=== PATIENT | male | born 1980 | race Caucasian/White ===

== ENCOUNTER 2017-11-05 15:10 | Emergency (ER) | payer OTHER ==
[~2017-11-05] VITALS: Ht 180.3 cm; Wt 99.8 kg
[2017-11-05 15:49] LABS: ABSOLUTE BASOPHIL COUNT 0 /CUMM (0.0-0.2); ABSOLUTE EOSINOPHIL COUNT 0.1 /CUMM (0.0-0.7); ABSOLUTE GRANULOCYTE CT 5.1 /CUMM (1.4-6.5); ABSOLUTE LYMPH COUNT 1.7 /CUMM (1.2-3.4); ABSOLUTE MONOCYTE COUNT 0.8 /CUMM (0.10-0.60); BASOPHIL % 0.4 % (0.0-2.0); EOSINOPHIL % 1.2 % (0-5); GRANULOCYTE % 66.9 % (42.2-75.2); HEMATOCRIT 43.3 % (42-52); MEAN CORPUSCULAR HGB CONC 33.7 G/DL (33.0-37.0); MEAN CORPUSCULAR VOLUME 86.1 FL (80.0-94.0); MEAN PLATELET VOLUME 8.9 FL (7.4-10.4); PLATELET COUNT 217 /CUMM (130-400); RBC DISTRIBUTION WIDTH 13.6 % (11.5-14.5); RED BLOOD CELL CT 5.03 /CUMM (4.70-6.10); WHITE BLOOD CELL COUNT 7.7 /CUMM (4.8-10.8)
--- NOTE | 2017-11-05 16:17 | ED CARDIAC/CP/PALPITATIONS ---
History of Present Illness General Chief Complaint: Chest Pain Stated Complaint: CP Source: patient, old records Exam Limitations: no limitations Vital Signs & Intake/Output Vital Signs & Intake/Output Vital Signs Date Time Temp Pulse Resp B/P B/P Pulse O2 O2 Flow FiO2 Mean Ox Delivery Rate 11/05 1847 98.8 71 18 132/81 99 Room Air 11/05 1629 Room Air 11/05 1513 98.2 84 18 158/93 99 Room Air Allergies Coded Allergies: No Known Allergies (11/05/17) Triage Note: PT TO ED FOR "WAVEY CHEST PAIN" THAT BEGAN "5 HOURS AGO" REPORTS HE WAS JUST HANGING OUT AT HOME WHEN HE BEGAN TO HAVE CHEST PAIN, DENIES ASSOCIATED SOB, CAGLE, N/V, REPORTS HE WAS COUGHING THIS AM P/T CP STARTING Triage Nurses Notes Reviewed? yes Onset: Abrupt Duration: hour(s): (6), constant Timing: recent history Quality/Severity: moderate, aching Location: central Radiation: no radiation Activities at Onset: none Nitro Today/Relief: no nitro taken today Aspirin Today: 325 mg x 1, provided by ED Associated Symptoms: DENIES HPI: 36-year-old male nonsmoker with no medical history presents to ER for evaluation of waxing and waning left-sided chest wall pain rated I came on around 10:00 this morning while at rest. No history of similar symptoms. The patient has a history of reflux R states this feels different. It is not associated with shortness of breath nausea vomiting diarrhea. No family history of some cardiac disease. No dizziness light and has palpitations. He does not smoke. No alcohol or drug use. He is not taken anything for symptoms. (Jaden Jackman) Past History Travel History Traveled to [place] past 21 day No Medical History Any Pertinent Medical History? none Neurological: NONE EENT: NONE Cardiovascular: NONE Respiratory: NONE Gastrointestinal: NONE Hepatic: NONE Renal: NONE Musculoskeletal: NONE Psychiatric: NONE Endocrine: NONE Blood Disorders: NONE Cancer(s): NONE Surgical History Surgical History: none Psychosocial History What is your primary language Sami Tobacco Use: Never used ETOH Use: occasional use Illicit Drug Use: denies illicit drug use Family History Hx Contributory? No (Jaden Jackman) Review of Systems Review of Systems Constitutional: Reports: see HPI. Comments Review of systems: See HPI, All other systems negative. Constitutional, no chills no fever, no malaise HEENT: no sore throat no congestion, no ear pain Cardiovascular: No chest pain , no palpitation Skin: no rashes, no change in skin Respiratory: No dyspnea no cough no sputum GI: No nausea no vomiting, no diarrhea : No dysuria No hematuria, no frequency Muscle skeletal: No joint pain, no back pain Neurologic: , no headache Heme/endocrine: No bruising Immunology: No lymphadenopathy (Anne BAZZI,Jaden) Physical Exam Physical Exam General Appearance: well developed/nourished, alert Cardiovascular: regular rate/rhythm Comments: Well-developed well-nourished person in no acute distress HEENT: Normal EENT exam; PERRL, EOMI. HEAD is atraumatic. moist mucous membranes. Neck: Supple, normal range of motion Back: Nontender, Full range of motion Cardiovascular: Regular rate and rhythms no murmurs Respiratory: Chest nontender.There were no bony deformities, no asymmetry. No respiratory distress. Patient speaking in full complete sentences. Breath sounds clear to auscultation bilaterally: NO W/R/R Abdomen: Soft, nontender nondistended, no appreciable organomegaly. Normal bowel sounds. No rebound/guarding, Extremity: No edema, full range of motion of extremities Neuro: Alert oriented x3, motor sensory normal, There were no obvious focal neurologic abnormalities. Skin: No appreciable rash on exposed skin, skin is warm and dry. Psych: Mood and affect is normal, memory and judgment is normal. Core Measures ACS in differential dx? Yes CVA/TIA Diagnosis No Sepsis Present: No Sepsis Focused Exam Completed? No (Anne BAZZI,Jaden) Progress Differential Diagnosis: AMI, aortic dissection, atrial fibrillation, CHF/pulm edema, costochondritis, musculoskeletal pain, myocarditis, pericarditis, pneumonia, pneumothorax, pulmonary embolism, unstable angina Diagnostic Imaging: Viewed by Me: Radiology Read. Discussed w/RAD: Radiology Read. Radiology Impression: PATIENT: RUPAL BARDALES PRESENT AGE: 36 PATIENT ACCOUNT NO: [id number] : 81 LOCATION: [facility] ORDERING PHYSICIAN: Jaden BAZZI SERVICE DATE: 11/05/17 EXAM TYPE: RAD - XRY- PORTABLE CHEST XRAY EXAMINATION: XR PORTABLE CHEST CLINICAL INFORMATION: Chest pain COMPARISON: None TECHNIQUE: Portable frontal view of the chest was obtained. FINDINGS: Heart size is top normal. The lungs are clear without consolidation or effusion. No pneumothorax. The visualized osseous structures appear intact. IMPRESSION: No acute cardiopulmonary process. DICTATED BY: Agnieszka Stanley MD DATE/TIME DICTATED:11/05/171754 PHYSICIAN:WENDY DATE/ TIME TRANSCRIBED:11/05/171754 CONFIDENTIAL, DO NOT COPY WITHOUT APPROPRIATE AUTHORIZATION. <Electronically signed in Other Vendor System> SIGNED BY: Agnieszka Stanley MD 11/05/171758 Initial ED EKG: normal intervals, normal p-waves, normal QRS complex, normal sinus rhythm Repeat EKG: unchanged Rhythm Strip: normal sinus rhythm (Anne BAZZI,Jaden) Plan of Care: Orders Procedure Date/time Status TROPONIN LEVEL 11/05 1830 Complete EKG 11/05 1830 Active Add-on Test (ER Only) 11/05 1626 Active Telemetry/Print And Pattern Designer 11/05 1626 Active TROPONIN LEVEL 11/05 1527 Complete D-DIMER 11/05 1527 Complete COMPREHENSIVE METABOLIC PANEL 11/05 1527 Complete CBC WITHOUT DIFFERENTIAL 11/05 1527 Complete EKG 11/05 1511 Active Laboratory Tests 11/05/17 1851: Troponin I < 0.01 11/05/17 1533: Anion Gap 12, Estimated GFR > 60, BUN/Creatinine Ratio 13.3, Glucose 84, Calcium 9.5, Total Bilirubin 0.4, AST 25, ALT 46, Alkaline Phosphatase 53, Troponin I < 0.01, Total Protein 7.3, Albumin 4.3, Globulin 3.0, Albumin/Globulin Ratio 1.4, D-Dimer High Sensitivty < 200, CBC w Diff NO MAN DIFF REQ, RBC 5.03, MCV 86.1, MCH 29.0, MCHC 33.7, RDW 13.6, MPV 8.9, Gran % 66.9, Lymphocytes % 21.7, Monocytes % 9.8 H, Eosinophils % 1.2, Basophils % 0.4, Absolute Granulocytes 5.1, Absolute Lymphocytes 1.7, Absolute Monocytes 0.8 H, Absolute Eosinophils 0.1, Absolute Basophils 0 Labs ordered old records reviewed patient states pain currently 4 out of 10 over declining anything when offered. X-rays ordered discussed with the plan of care need for repeat troponin. Case discussed with Dr. Banks who agrees with plan Patient seen by Dr. Boorse agrees with plan 1800 patient resting in no apparent distress denies any complaints of discussed the plan of care pending repeat troponin d-dimer negative chest x-ray within normal limits. I discussed with the patient at length all of their results. I had an extensive conversation regarding need for close follow up with their primary care physician information provided for the same as well as for follow-up with cardiology this week as well as return precautions. I answered all of their questions, they feel comfortable with the plan and follow-up care. I discussed with the patient/family the medications that they will receive. I gave them signs and symptoms that could indicate an adverse reaction. I have advised them to limit their activities until they can see how they respond to the medication. (Jaden Jackman) (Alvaro Banks DO) Departure Departure Disposition: HOME OR SELF CARE Condition: Stable Clinical Impression Primary Impression: Atypical chest pain Referrals: Doris Pedraza MD Patient Has No Primary Care Dr (PCP/Family) Yoel Bobby MD Additional Instructions: Follow-up with your primary care physician as well as product development worker Dr. Bobby this week. Return anytime sooner with any concerns. Departure Forms: Customer Survey General Discharge Information (Jaden Jackman) PA/MONITORING ENGINEER Co-Sign Statement Statement: ED Attending supervision documentation- [x] I saw and evaluated the patient. I have also reviewed all the pertinent lab results and diagnostic results. I agree with the findings and the plan of care as documented in the PA's/MONITORING ENGINEER's documentation. [] I have reviewed the ED Record and agree with the PA's/MONITORING ENGINEER's documentation. [] Additions or exceptions (if any) to the PAs/MONITORING ENGINEER's note and plan are summarized below: [] 36-year-old male with left-sided chest pain that radiated in the left arm. His heart score is low risk. He will have serial troponins, if negative will follow -up with cardiology. (Alvaro Banks DO) Critical Care Note Critical Care Note Critical Care Time: non-applicable (Jaden Jackman)
--- NOTE | 2017-11-05 17:59 | RADIOLOGY REPORT ---
EXAMINATION: XR PORTABLE CHEST CLINICAL INFORMATION: Chest pain COMPARISON: None TECHNIQUE: Portable frontal view of the chest was obtained. FINDINGS: Heart size is top normal. The lungs are clear without consolidation or effusion. No pneumothorax. The visualized osseous structures appear intact. IMPRESSION: No acute cardiopulmonary process.
== END 2017-11-05 19:53 ==
LOC: ERH 15:10
PROVIDERS: Emergency Medicine
DX: R07.89 Other chest pain (principal)
CPT/HCPCS: 71045; 93005; 93010